=== PATIENT | female | born 1980 | race Caucasian/White ===

== ENCOUNTER → 2019-11-02 | Outpatient (CLI) | payer OTHER | LOC: RAD 08:24 | DX: O46.91 Antepartum hemorrhage, unspecified, first trimester (principal); N83.201 Unspecified ovarian cyst, right side; Z3A.08 8 weeks gestation of pregnancy ==

== ENCOUNTER 2021-01-18 20:34 | Emergency (ER) | payer OTHER ==
[2021-01-18] MEDS ORDERED: AFRIN 20 ML20 M2 NS (20:51)
[2021-01-18] MEDS ORDERED: ZYRTEC10 M3 PO (20:51)
[2021-01-18] MEDS ORDERED: PROAIR HFA0.09 MG/AC IH (20:52)
[2021-01-18] MEDS ORDERED: SINGULAIR PO (20:52)
[2021-01-18] MEDS ORDERED: PATADAY 2.5 ML2.5 ML OU (20:53)
[2021-01-18] MEDS ORDERED: BUSPAR 15MG TAB15 MG PO (20:53)
[2021-01-18] MEDS ORDERED: HYDROXYZINE HCL25 M1 PO (20:53)
[2021-01-18] MEDS ORDERED: IMITREX50 M1 PO (20:54)
[2021-01-18] MEDS ORDERED: FLONASE ALLERG9.9 ML NS (20:54)
[2021-01-18 22:02] LABS: HEMOGLOBIN 15.7 g/dL (12.5-16.0); MEAN CELL VOLUME 91 fl (78-100); MEAN CORPUSCULAR HEMOGLOBIN 31 pg (27-31); MEAN CORPUSCULAR HGB CONC 34 g/dL (33-37); MEAN PLATELET VOLUME 11.2 fl (7.4-10.4); PLATELET COUNT 183 K/mm3 (130-400); RED BLOOD COUNT 5.04 M/mm3 (4.10-5.30); RED CELL DISTRIBUTION WIDTH 12.8 % (11.5-14.5); WHITE BLOOD COUNT 7.8 K/mm3 (4.8-10.8)
[2021-01-18 22:09] LABS: ALBUMIN 4.3 g/dL (3.5-5.0)
[2021-01-18 22:11] LABS: CALCIUM 9.1 mg/dL (8.3-10.5)
[2021-01-18 22:12] LABS: TOTAL PROTEIN 7.2 g/dL (6.4-8.3)
[2021-01-18 22:14] LABS: TOTAL BILIRUBIN 0.3 mg/dL (0.2-1.2)
[2021-01-18 22:17] LABS: URINE APPEARANCE CLOUDY; URINE BILIRUBIN NEGATIVE (NEGATIVE); URINE BLOOD 250 ery/uL (NEGATIVE); URINE COLOR YELLOW; URINE GLUCOSE NEGATIVE (NEGATIVE); URINE KETONE NEGATIVE (NEGATIVE); URINE LEUKOCYTE ESTERASE NEGATIVE (NEGATIVE); URINE NITRATE NEGATIVE (NEGATIVE); URINE PROTEIN(semi-quant) TRACE mg/dL (NEGATIVE); URINE UROBILINOGEN NORMAL (NORMAL); URINE WBC 0-1 /hpf (0-3)
[2021-01-18 22:18] LABS: URINE MUCUS PRESENT (NOT PRESENT)
[2021-01-18 22:28] LABS: LYMPHOCYTE 24 % (20-51); MONOCYTE 5 % (3-10); NEUTROPHILS 63 % (42-75)
[2021-01-18] MEDS ORDERED: CYCLOBENZAPRINE10 M1 PO (23:14)
[2021-01-18] MEDS ORDERED: ONDANSETRON ODT8 MG PO (23:15)
[2021-01-18 23:28] VITALS: BP 105/77
== END 2021-01-18 23:25 | disposition home or self-care (01) ==
LOC: ED 20:34
PROVIDERS: Nurse Practitioner Family
DX: S16.1XXA Strain of muscle, fascia and tendon at neck level, initial encounter (principal); S20.229A Contusion of unspecified back wall of thorax, initial encounter; G43.909 Migraine, unspecified, not intractable, without status migrainosus; F17.210 Nicotine dependence, cigarettes, uncomplicated; Z88.2 Allergy status to sulfonamides; Z88.1 Allergy status to other antibiotic agents; V80.010A Animal-rider injured by fall from or being thrown from horse in noncollision accident, initial encounter
CPT/HCPCS: J2360; J2405; J3010; J3490; J7120